=== PATIENT | male | born 1980 ===

== ENCOUNTER 2018-10-15 08:49 | Emergency (ER) | payer OTHER ==
[2018-10-15 08:57] VITALS: BMI 23.5
[2018-10-15 09:05] VITALS: TEMP 98.5
[2018-10-15] MEDS ORDERED: Sodium Chloride 0.9% 1,000 ML IV ONE (09:49)
--- NOTE | 2018-10-15 10:17 | C.PDOC ---
History Of Present Illness 38 year old male with a history of NIDDM, currently on Metformin 500 AM and PM, presents to the emergency department with complaints of high sugar levels for the past month. Patient states that his sugar levels have been in the 250-300 range. Patient complains of feeling weak and tired, but states that he has not visited his PMD. He denies nausea, vomiting, abdominal pain, excess urination, excess hunger, and excess thirst. Time Seen by Provider: 10/15/18 09:09 Chief Complaint (Nursing): High Blood Sugar History Per: Patient History/Exam Limitations: language barrier (Bobbin Hauler #[id number]) Onset/Duration Of Symptoms: Other (month) Current Symptoms Are (Timing): Still Present Current Diabetic Medications: Oral Medication (Metformin 500) Associated Infectious Symptoms: denies: Urinary Urgency, Urinary Frequency, Nausea, Vomiting, Other (abdominal pain, excess hunger, excess thirst) Past Medical History Reviewed: Historical Data, Nursing Documentation, Vital Signs Vital Signs: Last Vital Signs Temp 98.5 F 10/15/18 08:59 Pulse 91 H 10/15/18 08:59 Resp 18 10/15/18 08:59 BP 144/92 H 10/15/18 08:59 Pulse Ox 99 10/15/18 08:59 - Medical History PMH: No Chronic Diseases Surgical History: No Surg Hx Family History: States: No Known Family Hx - Social History Hx Alcohol Use: Yes Hx Substance Use: No - Immunization History Hx Tetanus Toxoid Vaccination: No Hx Influenza Vaccination: No Hx Pneumococcal Vaccination: No Review Of Systems Constitutional: Positive for: Weakness. Negative for: Fever, Chills Gastrointestinal: Negative for: Nausea, Vomiting, Abdominal Pain, Diarrhea Genitourinary: Negative for: Frequency Physical Exam - Physical Exam Appears: Non-toxic, No Acute Distress Skin: Normal Color, Warm, Dry Head: Atraumatic, Normacephalic Eye(s): bilateral: Normal Inspection, PERRL, EOMI Nose: Normal Oral Mucosa: Moist Throat: Normal, No Erythema Neck: Normal, Supple Chest: Symmetrical, No Tenderness Cardiovascular: Rhythm Regular, No Murmur Respiratory: Normal Breath Sounds, No Rales, No Rhonchi, No Wheezing Gastrointestinal/Abdominal: Soft, No Tenderness, No Guarding, No Rebound Extremity: Normal ROM Neurological/Psych: Oriented x3, Normal Speech, Normal Cognition ED Course And Treatment - Laboratory Results Result Diagrams: 10/15/18 10:43 10/15/18 10:43 O2 Sat by Pulse Oximetry: 99 (RA) Pulse Ox Interpretation: Normal Medical Decision Making Medical Decision Making: Plan: CMP CBC Glucose POC NaCl IV Fluids discussed with pt that he needs to f/u with pmd, will increase dose of metformin. Disposition Counseled Patient/Family Regarding: Studies Performed, Diagnosis, Need For Followup - Disposition Referrals: Ernie Brewer MD [IM] - Disposition: HOME/ ROUTINE Disposition Time: 11:40 Condition: GOOD Additional Instructions: Por favor, zohaib un seguimiento con hudson mdico antes de la broderick programada en . Aumente la metformina a 1000 mg por la maana y 500 mg por la noche. Beber lquidos en aumento. Regrese a la wilmer de emergencias para cualquier sntoma peor Plese follow up with your doctor sooner than scheduled appointment in November. Increase metformin to 1000 mg in the morning and 500 mg at night. Drink increased fluids. Return to ER for any worse symptoms. Prescriptions: metFORMIN [glucOPHAGE] 500 mg PO BID #42 tab Instructions: Hyperglycemia, Adult (DC), The ABCs of Diabetes Forms: Gen Discharge Inst Czech, [place] (Czech) Print Language: KAZAKH - Clinical Impression Clinical Impression: Hyperglycemia - PA / GLUER / Resident Statement MD/DO has reviewed & agrees with the documentation as recorded. - Scribe Statement The provider has reviewed the documentation as recorded by the Scribe (Jorge Montesinos) All medical record entries made by the Scribe were at my direction and personally dictated by me. I have reviewed the chart and agree that the record accurately reflects my personal performance of the history, physical exam, medical decision making, and the department course for this patient. I have also personally directed, reviewed, and agree with the discharge instructions and disposition.
[2018-10-15] MEDS ORDERED: Sodium Chloride 0.9% 1,000 ML ONE (10:47)
[2018-10-15 10:58] LABS: ALB/GLOB RATIO 1.4 (1.0-2.1); ALBUMIN 4.4 g/dL (3.5-5.0); ALT/SGPT 19 U/L (21-72); AST/SGOT 14 U/L (17-59); BASO % 0.4 % (0.0-2.0); BLOOD UREA NITROGEN 13 mg/dL (9-20); CALCIUM 9.2 mg/dl (8.6-10.4); EOS # 0.1 K/uL (0.0-0.7); EOS % 0.9 % (0.0-4.0); GFR NON-AFRICAN AMERICAN > 60; HEMOGLOBIN 16.1 g/dL (12.0-18.0); LYMPH # 1.8 K/uL (1.0-4.3); LYMPH % 21.1 % (20.0-40.0); MEAN CELL VOLUME 94.9 fL (80.0-94.0); MEAN CORPUSCULAR HEMOGLOBIN 32.8 pg (27.0-31.0); MEAN CORPUSCULAR HGB CONC 34.6 g/dL (33.0-37.0); MEAN PLATELET VOLUME 9.1 fL (7.2-11.7); MONO # 0.8 K/uL (0.0-0.8); MONO % 8.9 % (0.0-10.0); NEUT # 5.8 K/uL (1.8-7.0); NEUT % 68.7 % (50.0-75.0); RBC 4.9 Mil/uL (4.40-5.90); WHITE BLOOD COUNT 8.5 K/uL (4.8-10.8)
[2018-10-15 12:48] VITALS: BP 123/84; PULSE 84; RESP 16
[2018-10-15 13:22] VITALS: O2SAT 99
== END 2018-10-15 12:50 | disposition home or self-care (01) ==
LOC: EDBD 08:49 → C.ER 08:49
DX: E11.65 Type 2 diabetes mellitus with hyperglycemia (principal); Z79.84 Long term (current) use of oral hypoglycemic drugs
CPT/HCPCS: 80053; 82948; 85025; 96360; 99284; J7030